=== PATIENT | male | born 1955 | race Caucasian/White ===

== ENCOUNTER 2019-04-09 06:46 | Day surgery (SDC) | payer OTHER ==
[~2019-04-09] VITALS: Ht 157.5 cm; Wt 102.1 kg
[2019-04-09] MEDS ORDERED: fentaNYL 0.05 MG/ML VIAL ONE (08:20)
[2019-04-09] MEDS ORDERED: LIDOCAINE 1% 500 MG/50 ML VIAL ONE (08:21)
[2019-04-09] MEDS ORDERED: LIDOCAINE 2% 1000 MG/50 ML VIAL INJ ONE (08:21)
[2019-04-09] MEDS ORDERED: ACETAMINOPHEN EXTRA STRENGTH 500 MG TAB PO PRN (08:45)
== END 2019-04-09 10:15 | disposition home or self-care (01) ==
LOC: MDS 06:46 → MMU 06:54 → MDS 10:15
PROVIDERS: ATTEND Internal Medicine Gastroenterology
DX: K76.0 Fatty (change of) liver, not elsewhere classified (principal); Z98.890 Other specified postprocedural states
CPT/HCPCS: 47000; 76942; J2001; Q0092; J3010

== ENCOUNTER 2020-09-16 08:44 | Day surgery (SDC) | payer OTHER ==
[~2020-09-16] VITALS: Ht 170.2 cm; Wt 108.0 kg
[2020-09-16 10:08] LABS: EOSINOPHILS # (AUTO) 0.3 K/uL (0-0.4); EOSINOPHILS % (AUTO) 6.2 % (0.0-4.0); HEMATOCRIT 42.6 % (36-52); HEMOGLOBIN 14.2 g/dL (12.0-18.0); LYMPHOCYTES # (AUTO) 1.7 K/uL (2.0-11.5); MEAN CORPUSCULAR HEMOGLOBIN 29 pg (27-31); MEAN CORPUSCULAR HGB CONC 33 g/dL (33-37); MEAN CORPUSCULAR VOLUME 86.1 fL (80-94); MONOCYTES # (AUTO) 0.6 K/uL (0.8-1.0); MONOCYTES % (AUTO) 11.3 % (1.7-9.3); NEUTROPHILS # (AUTO) 2.4 K/uL (1.8-7.7); NEUTROPHILS % (AUTO) 47.5 % (42.2-75.2); PLATELET COUNT (AUTO) 214 K/uL (140-450); RED BLOOD CELL COUNT(AUTO) 4.95 MIL/uL (4.20-6.10); RED CELL DISTRIBUTION WIDTH 13.4 % (11.6-13.7); WHITE BLOOD COUNT (AUTO) 5.1 K/uL (4.8-10.8)
[2020-09-16 10:31] LABS: PROTHROMBIN TIME 9.9 secs (10.8-13.4)
[2020-09-16] MEDS ORDERED: LIDOCAINE 2% 1000 MG/50 ML VIAL INJ ONE ×2 (11:27→13:30)
[2020-09-16] MEDS ORDERED: MORPHINE SULFATE 2 MG/ML SYR IVP PRN (12:40)
[2020-09-16] MEDS ORDERED: MORPHINE SULFATE 2 MG/ML SYR ONE (12:49)
[2020-09-16] MEDS ORDERED: MORPHINE SULFATE 2 MG/ML SYR IVP ONE (12:52)
== END 2020-09-16 13:12 | disposition home or self-care (01) ==
LOC: MDS 08:44 → MMU 08:44 → MDS 13:12
PROVIDERS: ATTEND Internal Medicine Gastroenterology
DX: K76.0 Fatty (change of) liver, not elsewhere classified (principal); E66.9 Obesity, unspecified; Z68.37 Body mass index [BMI] 37.0-37.9, adult
CPT/HCPCS: 36415; 47000; 76942; 85025; 85610; 85730; J2001; J2270

== ENCOUNTER 2021-11-24 11:13 | Day surgery (SDC) | payer OTHER ==
[~2021-11-24] VITALS: Ht 172.7 cm; Wt 99.8 kg
[2021-11-24 13:21] LABS: BASOPHILS # (AUTO) 0.1 K/uL (0.00-0.22); BASOPHILS % (AUTO) 1.1 % (0.0-2.0); EOSINOPHILS # (AUTO) 0.3 K/uL (0-0.4); EOSINOPHILS % (AUTO) 5.8 % (0.0-4.0); HEMATOCRIT 42.9 % (36-52); HEMOGLOBIN 14.5 g/dL (12.0-18.0); LYMPHOCYTES # (AUTO) 1.9 K/uL (2.0-11.5); LYMPHOCYTES % (AUTO) 35.7 % (20.5-51.1); MEAN CORPUSCULAR HEMOGLOBIN 29 pg (27-31); MEAN CORPUSCULAR HGB CONC 34 g/dL (33-37); MEAN CORPUSCULAR VOLUME 84.6 fL (80-94); MONOCYTES # (AUTO) 0.6 K/uL (0.8-1.0); MONOCYTES % (AUTO) 10.9 % (1.7-9.3); NEUTROPHILS # (AUTO) 2.4 K/uL (1.8-7.7); NEUTROPHILS % (AUTO) 46.5 % (42.2-75.2); PLATELET COUNT (AUTO) 256 K/uL (140-450); RED BLOOD CELL COUNT(AUTO) 5.06 MIL/uL (4.20-6.10); RED CELL DISTRIBUTION WIDTH 14.1 % (11.6-13.7); WHITE BLOOD COUNT (AUTO) 5.2 K/uL (4.8-10.8)
[2021-11-24 13:32] LABS: PROTHROMBIN TIME 10.4 secs (10.8-13.4)
[2021-11-24] MEDS ORDERED: LIDOCAINE MPF 2% 100 MG/5 ML VIAL INJ ONE ×2 (14:19→14:47)
[2021-11-24] MEDS ORDERED: fentaNYL citrate 0.05 MG/ML VIAL ONE (14:47)
[2021-11-24] MEDS ORDERED: ACETAMINOPHEN 100 ML IV SCH (15:45)
== END 2021-11-24 16:50 | disposition home or self-care (01) ==
LOC: MDS 11:13 → MMU 12:31 → MDS 16:50
PROVIDERS: ATTEND Internal Medicine Gastroenterology
DX: K76.0 Fatty (change of) liver, not elsewhere classified (principal); Z20.822 Contact with and (suspected) exposure to COVID-19; Z79.899 Other long term (current) drug therapy
CPT/HCPCS: 36415; 47000; 76942; 85025; 85610; 85730; 87426; J2001; Q0092; J3010

== ENCOUNTER 2022-07-16 11:13 | Day surgery (SDC) | payer OTHER ==
[~2022-07-16] VITALS: Ht 170.2 cm; Wt 102.5 kg
[2022-07-16 11:55] LABS: BASOPHILS # (AUTO) 0.1 K/uL (0.00-0.22); BASOPHILS % (AUTO) 1.1 % (0.0-2.0); EOSINOPHILS # (AUTO) 0.3 K/uL (0-0.4); EOSINOPHILS % (AUTO) 4.5 % (0.0-4.0); HEMATOCRIT 44.3 % (36-52); LYMPHOCYTES # (AUTO) 2.4 K/uL (2.0-11.5); LYMPHOCYTES % (AUTO) 37.8 % (20.5-51.1); MEAN CORPUSCULAR HEMOGLOBIN 29 pg (27-31); MEAN CORPUSCULAR HGB CONC 34 g/dL (33-37); MEAN CORPUSCULAR VOLUME 84.6 fL (80-94); MONOCYTES # (AUTO) 0.7 K/uL (0.8-1.0); MONOCYTES % (AUTO) 10.6 % (1.7-9.3); NEUTROPHILS # (AUTO) 2.9 K/uL (1.8-7.7); PLATELET COUNT (AUTO) 209 K/uL (140-450); RED BLOOD CELL COUNT(AUTO) 5.23 MIL/uL (4.20-6.10); RED CELL DISTRIBUTION WIDTH 13.9 % (11.6-13.7); WHITE BLOOD COUNT (AUTO) 6.3 K/uL (4.8-10.8)
[2022-07-16] MEDS ORDERED: fentaNYL citrate 0.05 MG/ML VIAL ONE (12:20)
[2022-07-16] MEDS ORDERED: LIDOCAINE MPF 2% 100 MG/5 ML VIAL INJ ONE ×3 (12:20→13:00)
[2022-07-16 12:23] LABS: PROTHROMBIN TIME 10.4 secs (10.8-13.4)
[2022-07-16] MEDS: LIDOCAINE 2% 1000 MG/50 ML VIAL INJ ONE (13:15)
[2022-07-16] MEDS ORDERED: ACETAMINOPHEN EXTRA STRENGTH 500 MG TAB PO PRN (13:40)
[2022-07-16] MEDS ORDERED: ACETAMINOPHEN EXTRA STRENGTH 500 MG TAB ONE (13:48)
== END 2022-07-16 15:05 | disposition home or self-care (01) ==
LOC: MDS 11:13 → MMU 11:28 → MDS 15:05
PROVIDERS: ATTEND Internal Medicine Gastroenterology
DX: K75.81 Nonalcoholic steatohepatitis (NASH) (principal); Z79.899 Other long term (current) drug therapy
CPT/HCPCS: 36415; 47000; 76942; 85025; 85610; 85730; J2001; Q0092; J3010

== ENCOUNTER 2022-11-27 06:58 | Day surgery (SDC) | payer OTHER ==
[~2022-11-27] VITALS: Ht 170.2 cm; Wt 100.7 kg
[2022-11-27] MEDS ORDERED: LIDOCAINE 1% 500 MG/50 ML VIAL ONE (08:16)
[2022-11-27] MEDS ORDERED: fentaNYL citrate 0.05 MG/ML VIAL ONE (08:16)
[2022-11-27] MEDS ORDERED: LIDOCAINE 2% 1000 MG/50 ML VIAL INJ ONE (08:29)
[2022-11-27] MEDS ORDERED: MORPHINE SULFATE 2 MG/ML SYR ONE (09:46)
[2022-11-27] MEDS ORDERED: MORPHINE SULFATE 2 MG/ML SYR IVP ONE (10:00)
== END 2022-11-27 12:25 | disposition home or self-care (01) ==
LOC: MDS 06:58 → MMU 06:58 → MDS 12:25
PROVIDERS: ATTEND Internal Medicine Gastroenterology
DX: K75.81 Nonalcoholic steatohepatitis (NASH) (principal); Z79.899 Other long term (current) drug therapy
CPT/HCPCS: 47000; 76942; J2001; J2270; Q0092; J3010